=== PATIENT | female | born 1985 | race Caucasian/White ===

== ENCOUNTER 2018-04-24 12:55 | Emergency (ER) | payer OTHER ==
--- NOTE | 2018-04-24 14:03 | EDPHY ---
H & P Time Seen by Provider: 04/24/18 14:03 HPI/ROS: CHIEF COMPLAINT: Headache after head trauma HISTORY OF PRESENT ILLNESS: This happened a day and half ago in the evening at work. She bent over to get a tray from a shelf and stood up suddenly hitting her head on open oven door. She did not lose consciousness or have a seizure. Since then she has felt a fuzzy sensation in her head, with a dull headache. It is worse when she is standing up and better lying down and this is associated with increased emotional volatility and feeling dizzy and difficulty concentrating. Symptoms moderate. Denies vomiting. REVIEW OF SYSTEMS: Eye: no change in vision ENT: no sore throat Cardiac: no chest pain or syncope Pulmonary: no cough or SOB Abdomen: HPI no abdominal pain, 1 episode of diarrhea today Musculoskeletal: No neck pain Skin: no rash Neuro: HPI , no vertigo or being off balance. Constitutional: no fever : no urinary symptoms A comprehensive 10 point review of systems is otherwise negative aside from elements mentioned in the history of present illness. PAST MEDICAL HISTORY: Asthma Social history: Here with her mom, works in a bakery General Appearance: Alert and conversant, cooperative. Eyes: No scleral icterus. Pupils equal reactive extraocular motion intact. ENT, Mouth: Normal mucous membranes. No bruising around the eye or behind the ear on the mastoid. Respiratory: Normal respiratory effort, breath sounds equal, lungs are clear to auscultation. Cardiovascular: Regular rate and rhythm. Gastrointestinal: Abdomen is soft and non tender. Neurological: Alert, face symmetric, normal motor and sensory in extremities. [id number] normal bilaterally, no pronator drift, fluent speech. Romberg negative, can do tandem gait. Skin: Warm and dry, no rashes. Musculoskeletal: No midline spinal tenderness. Psychiatric: Not agitated. Emergency Department course/MDM: Patient does not present with red flags to suggest she has high risk for epidural subdural subarachnoid hemorrhage or skull fracture. Cervical spine cleared clinically. Dissection considered but I think it is unlikely. More likely concussion. Precautions given, off work for the next 3 days as well she is there it will be difficult to avoid loud noises and bright lights. Patient and mother states she is comfortable with observation, stated plan, no imaging. Smoking Status: Former smoker Constitutional: Initial Vital Signs Temperature (C) 37.2 C 04/24/18 13:04 Heart Rate 105 H 04/24/18 13:04 Respiratory Rate 16 04/24/18 13:04 Blood Pressure 132/98 H 04/24/18 13:04 O2 Sat (%) 98 04/24/18 13:04 O2 Delivery Mode Room Air Allergies/Adverse Reactions: No Known Allergies Allergy (Unverified 04/24/18 13:03) Home Medications: Medication Instructions Recorded Multivitamin 04/24/18 Zyrtec 04/24/18 Departure - Departure Disposition: Home, Routine, Self-Care Clinical Impression: Concussion Qualifiers: Encounter type: initial encounter Loss of consciousness presence/duration: without LOC Qualified Code(s): S06.0X0A - Concussion without loss of consciousness, initial encounter Condition: Good Instructions: Concussion (ED), Post Concussion Syndrome (ED) Referrals: Sheila López MD [Medical Doctor] - 3-4 days, if not improved Stand Alone Forms: Work Excuse
[2018-04-24 14:38] VITALS: BP 120/97
== END 2018-04-24 14:30 | disposition home or self-care (01) ==
DX: S06.0X0A Concussion without loss of consciousness, initial encounter (principal); W22.8XXA Striking against or struck by other objects, initial encounter; Y93.G3 Activity, cooking and baking; Y99.0 Civilian activity done for income or pay